=== PATIENT | male | born 1965 | race Two or more races ===

== ENCOUNTER 2022-08-15 10:15 | Inpatient (IN) | payer OTHER ==
[~2022-08-15] VITALS: Ht 180.3 cm; Wt 108.7 kg
[2022-08-15 10:56] LABS: Basophils # (auto) 0 10 ^3/uL (0-0.2); Basophils % (auto) 0.4 % (0.0-2.0); Eosinophils # (auto) 0.2 10 ^3/uL (0-0.8); Hematocrit 45.8 % (41.0-53.0); Hemoglobin 15.5 g/dL (13.5-17.5); Lymphocytes # (auto) 2.2 10 ^3/uL (0.4-5.4); Lymphocytes % (auto) 27.2 % (10.0-50.0); Mean Corpuscular Hemoglobin 29.4 pg (28.0-32.0); Mean Corpuscular Hgb Conc. 33.8 g/dL (32.0-36.0); Mean Corpuscular Volume 86.9 fL (80.0-100.0); Monocytes # (auto) 0.6 10 ^3/uL (0-1.3); Monocytes % (auto) 7.9 % (0.0-12.0); Neutrophils # (auto) 5.1 10 ^3/uL (1.6-8.6); Neutrophils % (auto) 62.5 % (37.0-80.0); Nucleated Red Blood Cells % 0.9 %; Red Blood Cells 5.27 10^6/uL (4.5-5.90); White Blood Cell 8.1 10^3/uL (4.4-10.8)
[2022-08-15 11:19] LABS: Albumin 3.9 g/dL (3.4-5.0); Calcium 9.1 mg/dL (8.5-10.1); Potassium 3.7 mmol/L (3.5-5.1)
[2022-08-15 11:21] LABS: Urine WBC None Seen /hpf (0 - 3)
[2022-08-15 11:22] LABS: Total Protein 7.5 g/dL (6.4-8.2)
[2022-08-15 11:41] LABS: Urine Bacteria NONE SEEN /hpf (None Seen); Urine Blood Negative /uL (Negative); Urine Hyaline Cast FEW /lpf (0 - 2); Urine Specific Gravity 1.014 (1.001-1.035)
[2022-08-15 11:51] LABS: INR 1.09 (0.9-1.15); Partial Thromboplastin Time 27.1 SEC (24.5-34.5)
[2022-08-15] MEDS ORDERED: DEXTROSE (50%) 50ML SYRG IV PRN (13:15)
[2022-08-15] MEDS ORDERED: ACETAMINOPHEN 325 MG TAB PO PRN (13:15)
[2022-08-15] MEDS ORDERED: MORPHINE SULFATE 4 MG/ML SYR/VIAL IV PRN (13:15)
[2022-08-15] MEDS ORDERED: ONDANSETRON HCL 4 MG/2 ML VIAL IV PRN (13:15)
[2022-08-15] MEDS ORDERED: NITROGLYCERIN 0.4 MG SL TAB SL PRN (13:15)
[2022-08-15] MEDS ORDERED: INSU1INJ3 SC (13:18)
[2022-08-15] MEDS ORDERED: INS7030I SC (13:20)
[2022-08-15] MEDS ORDERED: LISI-287 PO (13:29)
[2022-08-15] MEDS ORDERED: METF-370 PO (13:29)
[2022-08-15] MEDS ORDERED: METF-490 PO (13:30)
[2022-08-15] MEDS ORDERED: ALPR0.5T8 PO (13:33)
[2022-08-15] MEDS ORDERED: ATOR-47 PO (13:33)
[2022-08-15] MEDS ORDERED: TERB250T74 PO (13:52)
[2022-08-15] MEDS ORDERED: FLUO-125 PO (13:58)
[2022-08-15] MEDS ORDERED: BACL10TA PO (13:58)
[2022-08-15] MEDS ORDERED: FURO20TA3 PO (13:58)
[2022-08-15] MEDS ORDERED: CARB6.5S27 OT (13:58)
[2022-08-15] MEDS ORDERED: SOTA80TA PO (13:58)
[2022-08-15] MEDS ORDERED: CARV25TA55 PO (13:58)
[2022-08-15] MEDS ORDERED: ASPI-498 OR (13:58)
[2022-08-15] MEDS ORDERED: ISOS1TAB28 PO (13:58)
[2022-08-15 14:24] LABS: INR 1.09 (0.9-1.15)
[2022-08-15] MEDS: InsuLIN REG 1unit/0.01ml Soln (100units/ml) SC SCH ×2 (17:17→22:30)
[2022-08-15] MEDS: ACCU-CHEK COMFORT CURVE STRIP VI SCH ×2 (17:17→22:22)
[2022-08-15] MEDS ORDERED: ATORVASTATIN 20 MG TAB PO SCH (22:00)
[2022-08-15] MEDS: CARVEDILOL 12.5 MG TAB PO SCH (22:31)
[2022-08-15] MEDS: SOTALOL HCL 80 MG TAB PO SCH (22:32)
[2022-08-15] MEDS: ENOXAPARIN SOD 100 MG/1 ML SYRINGE SC SCH (22:33)
[2022-08-15] MEDS: ATORVASTATIN 20 MG TAB PO SCH (22:35)
[2022-08-16] MEDS: ACCU-CHEK COMFORT CURVE STRIP VI SCH ×4 (06:34→21:50)
[2022-08-16] MEDS: InsuLIN REG 1unit/0.01ml Soln (100units/ml) SC SCH ×4 (06:41→22:06)
[2022-08-16 07:00] LABS: Basophils # (auto) 0 10 ^3/uL (0-0.2); Basophils % (auto) 0.2 % (0.0-2.0); Eosinophils # (auto) 0.1 10 ^3/uL (0-0.8); Hematocrit 44.6 % (41.0-53.0); Hemoglobin 15.2 g/dL (13.5-17.5); Lymphocytes % (auto) 29.4 % (10.0-50.0); Mean Corpuscular Hemoglobin 29.7 pg (28.0-32.0); Mean Corpuscular Hgb Conc. 34.2 g/dL (32.0-36.0); Mean Corpuscular Volume 86.8 fL (80.0-100.0); Monocytes # (auto) 0.7 10 ^3/uL (0-1.3); Monocytes % (auto) 10.8 % (0.0-12.0); Neutrophils # (auto) 3.9 10 ^3/uL (1.6-8.6); Neutrophils % (auto) 57.6 % (37.0-80.0); Nucleated Red Blood Cells % 0.1 %; Red Blood Cells 5.13 10^6/uL (4.5-5.90); Red Cell Distribution Width 13.8 % (11.8-14.3); White Blood Cell 6.8 10^3/uL (4.4-10.8)
[2022-08-16 07:33] LABS: Potassium 3.5 mmol/L (3.5-5.1)
[2022-08-16 07:43] LABS: Albumin 3.7 g/dL (3.4-5.0); BUN/Creatinine Ratio 20.9 (10.0-20.0); Calcium 9.1 mg/dL (8.5-10.1); Total Protein 7.7 g/dL (6.4-8.2)
[2022-08-16] MEDS ORDERED: [UNRECOGNIZED DRUG - OTHER] PO SCH (10:00)
[2022-08-16] MEDS: SOTALOL HCL 80 MG TAB PO SCH ×2 (10:06→21:45)
[2022-08-16] MEDS: DOCUSATE SOD 100 MG CAP PO SCH (10:06)
[2022-08-16] MEDS: FLUoxetine HCL 20 MG CAP PO SCH (10:06)
[2022-08-16] MEDS: LISINOPRIL 20 MG TAB PO SCH (10:07)
[2022-08-16] MEDS: ISOSORBIDE MONONITRATE ER 60 MG TAB PO SCH (10:07)
[2022-08-16] MEDS: CARVEDILOL 12.5 MG TAB PO SCH ×2 (10:08→21:47)
[2022-08-16] MEDS: ENOXAPARIN SOD 100 MG/1 ML SYRINGE SC SCH ×2 (10:08→21:47)
[2022-08-16] MEDS: FUROSEMIDE 20 MG TAB PO SCH (10:08)
[2022-08-16] MEDS: ASPirin 81 mg TAB PO SCH (10:08)
[2022-08-16] MEDS: HCTZ 25 MG TAB PO SCH (10:09)
[2022-08-16] MEDS ORDERED: fentaNYL CITRATE 100 MCG/2 ML VL ONE (12:09)
[2022-08-16] MEDS ORDERED: ANGIOMAX 250 MG VIAL IV ONE (12:09)
[2022-08-16] MEDS ORDERED: MIDAZOLAM HCL 2MG/2ML 2ml VIAL (1mg/ml) ONE (12:10)
[2022-08-16] MEDS ORDERED: SODIUM CHL 0.9% 0 ML ONE (12:10)
[2022-08-16] MEDS ORDERED: IOHEXOL 350 MG/ML 100ML IJ ONE (12:12)
[2022-08-16] MEDS ORDERED: LIDOCAINE 2%HCL (LOCAL ANESTH.) INJ 20ML MDV ONE (12:13)
[2022-08-16] MEDS ORDERED: HEPARIN IN NS 1000Units/500mL 1,500 ML ONE (12:13)
[2022-08-16] MEDS ORDERED: VERAPAMIL 2.5MG/ML INJ 2ML VIAL IV ONE (12:41)
[2022-08-16] MEDS ORDERED: HEPARIN SODIUM (PORCINE) 5000 UNITS/ML 1ML VIAL ONE (12:41)
[2022-08-16 15:55] VITALS: BP 136/84
[2022-08-16 17:22] VITALS: BP 136/84
[2022-08-16 20:10] VITALS: BP 135/88
[2022-08-16] MEDS: ATORVASTATIN 20 MG TAB PO SCH (21:46)
[2022-08-16 22:00] VITALS: BP 135/88
[2022-08-17] VITALS (10 sets, daily range): BP systolic 97–136; BP diastolic 63–83
[2022-08-17] MEDS: InsuLIN REG 1unit/0.01ml Soln (100units/ml) SC SCH ×4 (06:22→22:00)
[2022-08-17] MEDS: ACCU-CHEK COMFORT CURVE STRIP VI SCH ×4 (06:23→22:00)
[2022-08-17 06:33] LABS: Basophils # (auto) 0 10 ^3/uL (0-0.2); Basophils % (auto) 0.4 % (0.0-2.0); Eosinophils # (auto) 0.1 10 ^3/uL (0-0.8); Eosinophils % (auto) 1.9 % (0.0-7.0); Hematocrit 46.4 % (41.0-53.0); Hemoglobin 15.6 g/dL (13.5-17.5); Lymphocytes # (auto) 2.7 10 ^3/uL (0.4-5.4); Lymphocytes % (auto) 48.7 % (10.0-50.0); Mean Corpuscular Hemoglobin 29.8 pg (28.0-32.0); Mean Corpuscular Hgb Conc. 33.6 g/dL (32.0-36.0); Mean Corpuscular Volume 88.6 fL (80.0-100.0); Monocytes # (auto) 0.6 10 ^3/uL (0-1.3); Monocytes % (auto) 10.8 % (0.0-12.0); Neutrophils # (auto) 2.2 10 ^3/uL (1.6-8.6); Neutrophils % (auto) 38.2 % (37.0-80.0); Nucleated Red Blood Cells % 0.3 %; Red Blood Cells 5.23 10^6/uL (4.5-5.90); Red Cell Distribution Width 13.9 % (11.8-14.3); White Blood Cell 5.6 10^3/uL (4.4-10.8)
[2022-08-17 07:02] LABS: Potassium 3.3 mmol/L (3.5-5.1)
[2022-08-17 07:09] LABS: Calcium 9.2 mg/dL (8.5-10.1)
[2022-08-17] MEDS: DOCUSATE SOD 100 MG CAP PO SCH (09:34)
[2022-08-17] MEDS: ASPirin 81 mg TAB PO SCH (09:34)
[2022-08-17] MEDS: HCTZ 25 MG TAB PO SCH (09:34)
[2022-08-17] MEDS: FUROSEMIDE 20 MG TAB PO SCH (09:35)
[2022-08-17] MEDS: LISINOPRIL 20 MG TAB PO SCH (09:36)
[2022-08-17] MEDS: ISOSORBIDE MONONITRATE ER 60 MG TAB PO SCH (09:36)
[2022-08-17] MEDS: SOTALOL HCL 80 MG TAB PO SCH ×2 (09:36→22:00)
[2022-08-17] MEDS: FLUoxetine HCL 20 MG CAP PO SCH (09:37)
[2022-08-17] MEDS: CARVEDILOL 12.5 MG TAB PO SCH ×2 (09:37→22:00)
[2022-08-17] MEDS: ENOXAPARIN SOD 100 MG/1 ML SYRINGE SC SCH (09:38)
[2022-08-17] MEDS ORDERED: HEPARIN SODIUM (PORCINE) 5000 UNITS/ML 1ML VIAL ONE (12:57)
[2022-08-17] MEDS ORDERED: fentaNYL CITRATE 100 MCG/2 ML VL ONE (12:57)
[2022-08-17] MEDS ORDERED: VERAPAMIL 2.5MG/ML INJ 2ML VIAL IV ONE (12:57)
[2022-08-17] MEDS ORDERED: MIDAZOLAM HCL 2MG/2ML 2ml VIAL (1mg/ml) ONE (12:57)
[2022-08-17] MEDS ORDERED: ANGIOMAX 250 MG VIAL IV ONE (12:57)
[2022-08-17] MEDS ORDERED: SODIUM CHL 0.9% 0 ML ONE (12:58)
[2022-08-17] MEDS ORDERED: HEPARIN DRIP/D5W 100UNITS/ML 250 ML IV SCH ×2 (15:15→23:00)
[2022-08-17] MEDS ORDERED: HEPARIN SODIUM (PORCINE) 5000 UNITS/ML 1ML VIAL IV ONE (15:15)
[2022-08-17 16:17] LABS: Basophils # (auto) 0 10 ^3/uL (0-0.2); Basophils % (auto) 0.3 % (0.0-2.0); Eosinophils # (auto) 0.1 10 ^3/uL (0-0.8); Eosinophils % (auto) 1.4 % (0.0-7.0); Hematocrit 45.9 % (41.0-53.0); Hemoglobin 15.3 g/dL (13.5-17.5); Lymphocytes # (auto) 2.4 10 ^3/uL (0.4-5.4); Lymphocytes % (auto) 42.1 % (10.0-50.0); Mean Corpuscular Hemoglobin 29.2 pg (28.0-32.0); Mean Corpuscular Hgb Conc. 33.4 g/dL (32.0-36.0); Mean Corpuscular Volume 87.3 fL (80.0-100.0); Monocytes # (auto) 0.5 10 ^3/uL (0-1.3); Monocytes % (auto) 9.4 % (0.0-12.0); Neutrophils # (auto) 2.7 10 ^3/uL (1.6-8.6); Neutrophils % (auto) 46.8 % (37.0-80.0); Nucleated Red Blood Cells % 0.3 %; Red Blood Cells 5.25 10^6/uL (4.5-5.90); Red Cell Distribution Width 13.7 % (11.8-14.3); White Blood Cell 5.8 10^3/uL (4.4-10.8)
[2022-08-17 16:40] LABS: INR 1.09 (0.9-1.15); Partial Thromboplastin Time 34.7 SEC (24.5-34.5)
[2022-08-17] MEDS: ALPRAZolam 0.5 MG TAB PO PRN (22:00)
[2022-08-17] MEDS: ATORVASTATIN 20 MG TAB PO SCH (22:01)
[2022-08-17 22:37] LABS: INR 1.09 (0.9-1.15); Partial Thromboplastin Time 35.6 SEC (24.5-34.5)
[2022-08-18 05:00] VITALS: BP 126/77
[2022-08-18] MEDS: ACCU-CHEK COMFORT CURVE STRIP VI SCH ×3 (06:15→16:39)
[2022-08-18] MEDS: InsuLIN REG 1unit/0.01ml Soln (100units/ml) SC SCH ×3 (06:35→16:42)
[2022-08-18 06:48] LABS: Basophils # (auto) 0 10 ^3/uL (0-0.2); Basophils % (auto) 0.3 % (0.0-2.0); Eosinophils # (auto) 0.1 10 ^3/uL (0-0.8); Eosinophils % (auto) 1.9 % (0.0-7.0); Hematocrit 43.9 % (41.0-53.0); Lymphocytes # (auto) 2.4 10 ^3/uL (0.4-5.4); Lymphocytes % (auto) 45.3 % (10.0-50.0); Mean Corpuscular Hemoglobin 29.7 pg (28.0-32.0); Mean Corpuscular Volume 87.3 fL (80.0-100.0); Monocytes # (auto) 0.5 10 ^3/uL (0-1.3); Monocytes % (auto) 8.5 % (0.0-12.0); Neutrophils # (auto) 2.3 10 ^3/uL (1.6-8.6); Nucleated Red Blood Cells % 0.2 %; Red Blood Cells 5.03 10^6/uL (4.5-5.90); Red Cell Distribution Width 13.9 % (11.8-14.3); White Blood Cell 5.3 10^3/uL (4.4-10.8)
[2022-08-18] MEDS ORDERED: HEPARIN DRIP/D5W 100UNITS/ML 250 ML IV SCH (08:30)
[2022-08-18 09:00] VITALS: BP 128/72
[2022-08-18] MEDS: ASPirin 81 mg TAB PO SCH (09:30)
[2022-08-18] MEDS: SOTALOL HCL 80 MG TAB PO SCH (09:30)
[2022-08-18] MEDS: LISINOPRIL 20 MG TAB PO SCH (09:30)
[2022-08-18] MEDS: DOCUSATE SOD 100 MG CAP PO SCH (09:31)
[2022-08-18] MEDS: FLUoxetine HCL 20 MG CAP PO SCH (09:31)
[2022-08-18] MEDS: FUROSEMIDE 20 MG TAB PO SCH (09:31)
[2022-08-18] MEDS: HCTZ 25 MG TAB PO SCH (09:31)
[2022-08-18] MEDS: CARVEDILOL 12.5 MG TAB PO SCH (09:31)
[2022-08-18] MEDS: ISOSORBIDE MONONITRATE ER 60 MG TAB PO SCH (09:32)
[2022-08-18 13:00] VITALS: BP 100/63
[2022-08-18 15:22] LABS: INR 1.12 (0.9-1.15); Partial Thromboplastin Time 47.8 SEC (24.5-34.5)
[2022-08-18] MEDS: HEPARIN DRIP/D5W 100UNITS/ML 250 ML IV SCH ×2 (15:30→16:45)
[2022-08-18 16:16] VITALS: BP 128/72
[2022-08-18 17:00] VITALS: BP 120/72
[2022-08-18] MEDS: ALPRAZolam 0.5 MG TAB PO PRN (20:12)
== END 2022-08-18 20:14 | disposition short-term general hospital (02) | DRG 281 ==
LOC: EDBD 10:15 → ER 10:15 → TELE 13:09 → TELE-WESTW 08-16 16:50
PROVIDERS: ADMIT Nurse Practitioner Family; ATTEND Internal Medicine
PROC: 4A023N7 Measurement of Cardiac Sampling and Pressure, Left Heart, Percutaneous Approach (ICD-10-PCS; principal; 2022-08-17)
PROC: B211YZZ Fluoroscopy of Multiple Coronary Arteries using Other Contrast (ICD-10-PCS; 2022-08-17)
PROC: B215YZZ Fluoroscopy of Left Heart using Other Contrast (ICD-10-PCS; 2022-08-17)
DX: I21.4 Non-ST elevation (NSTEMI) myocardial infarction (principal); I42.0 Dilated cardiomyopathy; I50.9 Heart failure, unspecified; I11.0 Hypertensive heart disease with heart failure; E78.5 Hyperlipidemia, unspecified; K76.0 Fatty (change of) liver, not elsewhere classified; I25.10 Atherosclerotic heart disease of native coronary artery without angina pectoris; I48.91 Unspecified atrial fibrillation; E11.9 Type 2 diabetes mellitus without complications; E66.9 Obesity, unspecified; Z68.33 Body mass index [BMI] 33.0-33.9, adult; Z95.5 Presence of coronary angioplasty implant and graft; Z95.0 Presence of cardiac pacemaker; I25.2 Old myocardial infarction
CPT/HCPCS: 36415; 71045; 76937; 80048; 80053; 81001; 82962; 83036; 83735; 84484; 85025; 85379; 85610; 85730; 86850; 86900; 86901; 93005; 93306; 99152; G0378; J1815; J2250